=== PATIENT | female | born 2000 | race Hispanic/Latino ===

== ENCOUNTER 2025-07-05 12:57 | Inpatient (IN) | payer MEDICAID, OTHER, SELFPAY ==
[2025-07-05] MEDS ORDERED: hydrALAZINE 20 MG/ML VIAL SLOW IVP PRN (13:34)
[2025-07-05] MEDS ORDERED: Oxytocin 30 units/NS 500 ML 500 ML IV SCH (13:45)
[2025-07-05 13:51] VITALS: BMI 31.6
[2025-07-05 14:24] LABS: Hematocrit 36.7 % (34.9-44.5); Hemoglobin 12.1 g/dL (12.0-15.5); Mean Corpuscular Hemoglobin 28.7 pg (27.0-33.0); Mean Corpuscular Volume 87.0 fL (81.6-98.3); Platelet Count 259 10x3/uL (150-450); Red Blood Cell (RBC) Count 4.22 10x6/uL (3.90-5.03); White Blood Cell (WBC) Count 8.12 10x3/uL (3.5-10.5)
[2025-07-05] MEDS: Acetaminophen 500 MG TAB PO PRN (14:31)
[2025-07-05 14:36] LABS: Protein, Urine Random Quant 63.0 mg/dL (1-14)
[2025-07-05 14:41] LABS: ALT (SGPT) 11 U/L (Less than 34); AST (SGOT) 17 U/L (11-34); Albumin 3.0 g/dL (3.1-4.5); Alkaline Phosphatase 188 U/L (40-110); Anion Gap 15 mmol/L (10-20); BUN (Urea Nitrogen) 11 mg/dL (7.0-18.7); Bilirubin, Total 0.3 mg/dL (0.3-1.2); Calc. Creatinine Clearance 169 mL/min (70-130); Calcium 8.4 mg/dL (7.8-10.44); Carbon Dioxide 18 mmol/L (22-29); Chloride 108 mmol/L (98-107); Globulin 3.2 g/dL (2.4-3.5); Glucose 71 mg/dL (70-105); Potassium 4.2 mmol/L (3.5-5.1); Sodium 137 mmol/L (136-145)
[2025-07-05 14:55] LABS: Fetal Membranes Rupture No Membranes Rupture (No Rupture)
[2025-07-05 14:59] LABS: Hep B Surf Ag - L&D Non-Reactive S/CO (NonReactive)
[2025-07-05 15:00] LABS: Syphilis Antibody Index 0.05 S/CO (<1.00 Non-Reactive)
[2025-07-07 05:25] LABS: Hematocrit 35.5 % (34.9-44.5); Hemoglobin 11.5 g/dL (12.0-15.5); Mean Corpuscular Hemoglobin 28.8 pg (27.0-33.0); Mean Corpuscular Volume 89.0 fL (81.6-98.3); Platelet Count 241 10x3/uL (150-450); Red Blood Cell (RBC) Count 3.99 10x6/uL (3.90-5.03); White Blood Cell (WBC) Count 14.81 10x3/uL (3.5-10.5)
[2025-07-07 05:41] LABS: ALT (SGPT) 8 U/L (Less than 34); AST (SGOT) 16 U/L (11-34); Albumin 3.1 g/dL (3.1-4.5); Alkaline Phosphatase 168 U/L (40-110); Anion Gap 14 mmol/L (10-20); BUN (Urea Nitrogen) 14 mg/dL (7.0-18.7); Bilirubin, Total 0.1 mg/dL (0.3-1.2); Calc. Creatinine Clearance 159 mL/min (70-130); Calcium 8.9 mg/dL (7.8-10.44); Carbon Dioxide 19 mmol/L (22-29); Chloride 108 mmol/L (98-107); Globulin 3.4 g/dL (2.4-3.5); Glucose 109 mg/dL (70-105); Potassium 4.6 mmol/L (3.5-5.1); Sodium 136 mmol/L (136-145)
[2025-07-07 06:55] LABS: Protein, Urine Random Quant 190.0 mg/dL (1-14)
[2025-07-07] MEDS ORDERED: Calcium Gluc 4.6 MEQ/10 ML (100 MG/ML) SLOW IVP PRN (08:56)
[2025-07-07] MEDS ORDERED: Magnesium Sulfate 20 gm/500 ml 20 GM/500 ML BAG IVPB SCH (09:00)
[2025-07-07 09:04] LABS: Fetal Membranes Rupture No Membranes Rupture (No Rupture)
[2025-07-07] MEDS: Ondansetron PF 4 MG/2 ML Vial IVP PRN (20:41)
[2025-07-07] MEDS: HYDROcodone/Acetaminophen 5/325 mg Tablet PO SCH (21:59)
[2025-07-08 09:08] LABS: Hematocrit 34.8 % (34.9-44.5); Hemoglobin 11.1 g/dL (12.0-15.5); Mean Corpuscular Hemoglobin 28.6 pg (27.0-33.0); Mean Corpuscular Volume 89.7 fL (81.6-98.3); Platelet Count 249 10x3/uL (150-450); Red Blood Cell (RBC) Count 3.88 10x6/uL (3.90-5.03); White Blood Cell (WBC) Count 10.74 10x3/uL (3.5-10.5)
[2025-07-08 09:48] LABS: ALT (SGPT) 9 U/L (Less than 34); AST (SGOT) 17 U/L (11-34); Albumin 2.9 g/dL (3.1-4.5); Alkaline Phosphatase 166 U/L (40-110); Anion Gap 16 mmol/L (10-20); BUN (Urea Nitrogen) 13 mg/dL (7.0-18.7); Bilirubin, Total 0.2 mg/dL (0.3-1.2); Calc. Creatinine Clearance 167 mL/min (70-130); Calcium 6.9 mg/dL (7.8-10.44); Carbon Dioxide 20 mmol/L (22-29); Chloride 103 mmol/L (98-107); Globulin 3.3 g/dL (2.4-3.5); Glucose 89 mg/dL (70-105); Magnesium 6.9 mg/dL (1.6-2.6); Potassium 4.5 mmol/L (3.5-5.1); Sodium 134 mmol/L (136-145)
[2025-07-08] MEDS: hydrALAZINE 20 MG/ML VIAL SLOW IVP SCH (19:01)
[2025-07-08] MEDS: Ferrous Sulfate 325 MG TAB PO SCH (19:01)
[2025-07-09] MEDS: hydrALAZINE 20 MG/ML VIAL SLOW IVP PRN ×2 (07:26→07:48)
[2025-07-09] MEDS: Famotidine/PF 20 mg/2ml Vial ONE (08:04)
[2025-07-09] MEDS: CEFAZOLIN 2 GM VIAL ONE (08:04)
[2025-07-09] MEDS ORDERED: Ketorolac Tromethamine 30 MG (1 mL) VIAL IVP PRN (09:10)
[2025-07-09] MEDS ORDERED: Ondansetron PF 4 MG/2 ML Vial IVP PRN ×2 (09:10)
[2025-07-09] MEDS ORDERED: Meperidine HCl/PF 25 MG (1 mL) VIAL SLOW IVP PRN (09:10)
[2025-07-09] MEDS ORDERED: diphenhydrAMINE 50 MG/ML VIAL IVP PRN (09:10)
[2025-07-09] MEDS ORDERED: Ketorolac Tromethamine 30 MG (1 mL) VIAL IVP SCH (09:15)
[2025-07-09] MEDS ORDERED: NO NARCS FOR 12 HOURS FS PRN (09:15)
[2025-07-09] MEDS ORDERED: diphenhydrAMINE 25 MG CAP PO PRN (11:09)
[2025-07-09] MEDS ORDERED: Bisacodyl 10 MG SUPP PR PRN (11:09)
[2025-07-09] MEDS ORDERED: Lanolin Ointment 7 GM TUBE TOP PRN (11:09)
[2025-07-09] MEDS ORDERED: Calcium Gluc 4.6 MEQ/10 ML (100 MG/ML) SLOW IVP PRN (11:09)
[2025-07-09] MEDS ORDERED: hydrALAZINE 20 MG/ML VIAL SLOW IVP PRN ×2 (11:09)
[2025-07-09] MEDS: Dexamethasone 10 MG/ML VIAL ONE (13:15)
[2025-07-09] MEDS: Oxytocin 10 UNITS/ML VIAL ONE (13:16)
[2025-07-09] MEDS: Ondansetron PF 4 MG/2 ML Vial ONE (13:16)
[2025-07-09] MEDS: Ketorolac Tromethamine 30 MG (1 mL) VIAL ONE (13:16)
[2025-07-09] MEDS: PHENYLEPHRINE-NS 100 MCG/ML 10 ML SYRINGE ONE (13:16)
[2025-07-09] MEDS: Ondansetron PF 4 MG/2 ML Vial IVP PRN (14:28)
[2025-07-09] MEDS: Ketorolac Tromethamine 30 MG (1 mL) VIAL IVP PRN (18:35)
[2025-07-09] MEDS ORDERED: Meperidine HCl/PF 25 MG (1 mL) VIAL IM PRN (21:15)
[2025-07-09] MEDS ORDERED: HYDROcodone/Acetaminophen 10/325 mg Tablet PO PRN (21:15)
[2025-07-09] MEDS: Ferrous Sulfate 325 MG TAB PO SCH (22:29)
[2025-07-10 03:22] LABS: Hematocrit 32.9 % (34.9-44.5); Hemoglobin 10.6 g/dL (12.0-15.5); Mean Corpuscular Hemoglobin 28.9 pg (27.0-33.0); Mean Corpuscular Volume 89.6 fL (81.6-98.3); Platelet Count 237 10x3/uL (150-450); Red Blood Cell (RBC) Count 3.67 10x6/uL (3.90-5.03); White Blood Cell (WBC) Count 16.40 10x3/uL (3.5-10.5)
[2025-07-10] MEDS: Boostrix 0.5 ML (Tdap) VIAL (>/=7 yrs of age) IM ONE (07:42)
[2025-07-10] MEDS: HYDROcodone/Acetaminophen 10/325 mg Tablet PO PRN (08:16)
[2025-07-10] MEDS: NIFEdipine XL 30 MG ER.TAB PO SCH (10:44)
[2025-07-10] MEDS: Acetaminophen 325 MG TAB PO PRN (12:11)
[2025-07-10] MEDS: Ibuprofen 800 MG TAB PO SCH (13:46)
[2025-07-10] MEDS ORDERED: Dibucaine 1% Ointment 28.35 GM TUBE TOP PRN (14:35)
[2025-07-10] MEDS: Witch Hazel 100 PAD JAR TOP PRN (16:09)
[2025-07-10] MEDS: Simethicone Chewable 80 MG TAB PO PRN (21:46)
[2025-07-12 11:03] VITALS: BP 137/79; TEMP 98.3
[2025-07-12 12:28] VITALS: BMI 31.6
== END 2025-07-12 13:50 | disposition home or self-care (01) | DRG 788 ==
LOC: CSHLD/OP 12:57 → CSHLD 14:21 → UNDOADMIN 14:21 → CSHLD 07-06 23:00 → CSHANTE 07-06 23:00 → CSHLD 07-07 09:00 → CSHANTE 07-07 09:00 → CSHLD 07-08 04:32 → CSHANTE 07-08 04:32 → CSHLD 07-08 04:41 → CSHPP 07-09 11:18
PROVIDERS: ADMIT Family Medicine; ATTEND Family Medicine
PROC: 10D00Z1 Extraction of Products of Conception, Low, Open Approach (ICD-10-PCS; principal; 2025-07-06)
DX: O14.14 Severe pre-eclampsia complicating childbirth (principal); Z37.0 Single live birth; Z3A.32 32 weeks gestation of pregnancy; O60.14X0 Preterm labor third trimester with preterm delivery third trimester, not applicable or unspecified
CPT/HCPCS: 36415; 51702; 80053; 82570; 83735; 84112; 84156; 85027; 86780; 86850; 86900; 86901; 87340; 87480; 87510; 87660; 99285; J0360; J0595; J0702; J1100; J1308; J1885; J2270; J2274; J2405; J2550; J2590